=== PATIENT | female | born 1980 | race Caucasian/White ===

== ENCOUNTER 2020-02-02 15:29 | Observation (INO) | payer OTHER ==
[~2020-02-02] VITALS: Ht 167.6 cm; Wt 78.4 kg
[2020-02-02] MEDS ORDERED: IV RINGERS,LACTATED 1000ML 1,000 ML IV SCH ×2 (15:38→17:00)
[2020-02-02] MEDS ORDERED: PHENYLEPHRINE in 0.9% NACL PF 1 MG/10 ML SYRINGE. IV ONE (15:43)
[2020-02-02] MEDS ORDERED: OXYTOCIN 10 UNIT/ML VIAL. ONE (15:44)
[2020-02-02] MEDS ORDERED: GLYCOPYRROLATE 1 MG/5 ML VIAL. ONE (15:44)
[2020-02-02] MEDS ORDERED: VASOPRESSIN 20 UNIT/ML VIAL. ONE (15:44)
[2020-02-02] MEDS ORDERED: MORPHINE SULFATE 2 MG/ML VIAL. IV PRN (15:45)
[2020-02-02] MEDS ORDERED: ONDANSETRON PF 4 MG/2 ML VIAL. IV PRN ×2 (15:45→16:30)
[2020-02-02] MEDS ORDERED: HYDROmorphone 2 MG/ML VIAL IV PRN (15:45)
[2020-02-02] MEDS ORDERED: fentaNYL PF VIAL 100 MCG/2 ML VIAL IV PRN ×2 (15:45)
[2020-02-02] MEDS ORDERED: PROCHLORPERAZINE 10 MG/2 ML VIAL. IV PRN ×2 (15:45→16:30)
[2020-02-02 15:59] LABS: HEMATOCRIT 26.3 % (36.0-47.0); HEMOGLOBIN 8.7 g/dL (12.0-15.5); WHITE BLOOD COUNT 11.1 x10^3/uL (4.0-11.0)
[2020-02-02] MEDS ORDERED: fentaNYL PF VIAL 100 MCG/2 ML VIAL ONE (16:19)
[2020-02-02] MEDS ORDERED: ONDANSETRON PF 4 MG/2 ML VIAL. ONE (16:19)
[2020-02-02] MEDS ORDERED: PROPOFOL 20 ML IV ONE (16:19)
[2020-02-02] MEDS ORDERED: DEXAMETHASONE SOD PHOS 4 MG/ML VIAL ONE (16:19)
[2020-02-02] MEDS ORDERED: LIDOCAINE 2% PF 5 ML VIAL. ONE (16:19)
[2020-02-02] MEDS ORDERED: SEVOFLURANE 16 TO 30 MINUTES. IH ONE (16:20)
[2020-02-02] MEDS ORDERED: ceFAZolin SODIUM IV Push 1 GM VIAL. IVP ONE ×2 (16:22→17:00)
--- NOTE | 2020-02-02 16:27 | PDOC1 ---
History and Physical Date of Admission Date of Admission DATE: 02/02/20 TIME: 16:24 Identification/Chief Complaint Chief Complaint vaginal bleeding and abd pain Source Source: Chart review, Patient History of Present Illness History of Present Illness 39 y/o G1 @ 9 wks with incomplete transferred from [facility] [place]. SHe continues to have bright red bleeding, near syncope and dizziness. Past Surgical History Past Surgical History: No pertinent history Current Medications Current Medications Current Medications Ondansetron HCl (Zofran) 4 mg PRN Q6HRS PRN IV NAUSEA/VOMITING; Start 02/02/20 at 15:45; Stop 02/03/20 at 15:44 Fentanyl Citrate (Fentanyl 2ml Vial) 25 mcg PRN Q5MIN PRN IV MILD PAIN 1-3; Start 02/02/20 at 15:45; Stop 02/03/20 at 15:44 Fentanyl Citrate (Fentanyl 2ml Vial) 50 mcg PRN Q5MIN PRN IV MODERATE TO SEVERE PAIN; Start 02/02/20 at 15:45; Stop 02/03/20 at 15:44 Morphine Sulfate (Morphine Sulfate) 1 mg PRN Q10MIN PRN IV SEVERE PAIN 7-10; Start 02/02/20 at 15:45; Stop 02/03/20 at 15:44; Status UNV Ringer's Solution 1,000 ml @ 30 mls/hr Q24H IV ; Start 02/02/20 at 15:38; Stop 02/03/20 at 03:37 Hydromorphone HCl (Dilaudid) 0.5 mg PRN Q10MIN PRN IV SEV PAIN, Second choice; Start 02/02/20 at 15:45; Stop 02/03/20 at 15:44; Status UNV Prochlorperazine Edisylate (Compazine) 5 mg PACU PRN PRN IV NAUSEA, MRX1; Start 02/02/20 at 15:45; Stop 02/02/20 at 20:00 Allergies Allergies: Coded Allergies: erythromycin base (Verified Allergy, Unknown, 02/02/20) hydrocodone (Verified Allergy, Unknown, 02/02/20) ROS General: YES: Fatigue, Malaise; No: Chills, Night Sweats, Appetite, Other PSYCHOLOGICAL ROS: YES: Anxiety; No: Behavioral Disorder, Concentration difficultie, Decreased libido, Depression, Disorientation, Hallucinations, Hostility, Irritablity, Memory difficulties, Mood Swings, Obsessive thoughts, Physical abuse, Sexual abuse, Sleep disturbances, Suicidal ideation, Other Eyes: No Blurry vision, No Decreased vision, No Double vision, No Dry eyes, No Excessive tearing, No Eye Pain, No Itchy Eyes, No Loss of vision, No Photophobia, No Scotomata, No Uses contacts, No Uses glasses, No Other HEENT: No: Heacaches, Visual Changes, Hearing change, Nasal congestion, Nasal discharge, Oral lesions, Sinus pain, Sore Throat, Epistaxis, Sneezing, Snoring, Tinnitus, Vertigo, Vocal changes, Other ALLERGY AND IMMUNOLOGY: No: Hives, Insect Bite Sensitivity, Itchy/Watery Eyes, Nasal Congestion, Post Nasal Drip, Seasonal Allergies, Other Hematological and Lymphatic: No: Bleeding Problems, Blood Clots, Blood Transfusions, Brusing, Night Sweats, Pallor, Swollen Lymph Nodes, Other ENDOCRINE: No: Breast Changes, Galactorrhea, Hair Pattern Changes, Hot Flashes, Malaise/lethargy, Mood Swings, Palpitations, Polydipsia/polyuria, Skin Changes, Temperature Intolerance, Unexpected Weight Changes, Other Breast: No New/Changing Breast Lumps, No Nipple changes, No Nipple discharge, No Other Respiratory: No: Cough, Hemoptysis, Orthopnea, Pleuritic Pain, Shortness of breath, SOB with excertion, Sputum Changes, Stridor, Tachypnea, Wheezing, Other Cardiovascular: No Chest Pain, No Palpitations, No Orthopnea, No Paroxysmal Noc. Dyspnea, No Edema, No Lt Headedness, No Other Gastrointestinal: No Nausea, No Vomiting, No Abdominal Pain, No Diarrhea, No Constipation, No Melena, No Hematochezia, No Other Skin: No Dry Skin, No Eczema, No Hair Changes, No Lumps, No Mole Changes, No Mottling, No Nail Changes, No Pruritus, No Rash, No Skin Lesion Changes, No Other, No Acne Physical Exam General: moderate distress HEENT: PERRLA Lungs: Clear to auscultation Heart: S1S2 Abdomen: Normal bowel sounds, Soft, No masses, Other (tenderness, moderate) Psych/Mental Status: Mental status NL Vitals Vitals Vital Signs Date Time Temp Pulse Resp B/P (MAP) Pulse Ox O2 Delivery O2 Flow Rate FiO2 3/25/20 15:40 98.5 72 18 79/38 100 Room Air 98.5 Labs Labs Laboratory Tests Test 02/02/20 15:50 White Blood Count 11.1 x10^3/uL (4.0-11.0) Hemoglobin 8.7 g/dL (12.0-15.5) Hematocrit 26.3 % (36.0-47.0) Platelet Count 217 x10^3/uL (140-400) Laboratory Tests Test 02/02/20 15:50 White Blood Count 11.1 x10^3/uL (4.0-11.0) Hemoglobin 8.7 g/dL (12.0-15.5) Hematocrit 26.3 % (36.0-47.0) Platelet Count 217 x10^3/uL (140-400) VTE Prophylaxis Ordered VTE Prophylaxis Devices: No VTE Pharmacological Prophylaxi: No Assessment/Plan Assessment/Plan A: 9 wk Incomplete AB P: Plan for suction D&C. Observation 23 hours due to anemia. MAURICIO DAY Jr, MD Feb 02, 2020 16:27
[2020-02-02] MEDS ORDERED: oxyCODONE/APAP 5/325 1 TAB TABLET PO PRN (16:30)
[2020-02-02] MEDS ORDERED: 0.9 % SODIUM CHLORIDE 10 ML DISP.SYRIN. IV PRN (16:30)
[2020-02-02] MEDS ORDERED: diphenhydrAMINE HCL 25 MG CAPSULE PO PRN (16:30)
[2020-02-02] MEDS ORDERED: CALCIUM CARBONATE 500 MG TAB.CHEW PO PRN (16:30)
[2020-02-02] MEDS ORDERED: ZOLPIDEM 5 MG TABLET. PO PRN (16:30)
[2020-02-02] MEDS ORDERED: diphenhydrAMINE 50 MG/ML VIAL IV PRN (16:30)
[2020-02-02] MEDS ORDERED: KETOROLAC 30 MG/ML VIAL. IV PRN (16:30)
[2020-02-02] MEDS ORDERED: SIMETHICONE 80 MG TAB.CHEW PO PRN (16:30)
[2020-02-02] MEDS ORDERED: DEXTROSE 50% 25 GM / 50ML DISP.SYRIN. IV PRN (16:30)
--- NOTE | 2020-02-02 16:30 | PDOC ---
BRIEF OPERATIVE NOTE Date: Feb 02, 2020 Pre-Op Diagnosis 9 wks Incomplete AB Post-Op Diagnosis SAme Procedure Performed Suction D&C Surgeon Dr. Back Anesthesia Type: General Blood Loss 100 ml Specimens Obtained POC Findings POC Complications none Operative Note see dictation MAURICIO BACK Jr, MD Feb 02, 2020 16:29
[2020-02-02] MEDS: GABAPENTIN 300 MG CAPSULE. PO SCH ×2 (17:00→22:57)
--- NOTE | 2020-02-02 17:23 | OP ---
DATE OF SURGERY: PREOPERATIVE DIAGNOSIS: A 9 weeks' incomplete . POSTOPERATIVE DIAGNOSIS: A 9 weeks' incomplete . PROCEDURE: Suction D and C. SURGEON: Mauricio Back MD ANESTHESIA: GETA. ESTIMATED BLOOD LOSS: 100 mL. COMPLICATIONS: None. FINDINGS: Products of conception. SUMMARY: A 39-year-old 1 at 9 weeks, incomplete , presented to [facility] Emergency Department with active bleeding and abdominal pain. The patient was transferred to the Emergency Room here at [place]. She was counseled on risks, benefits and expectations of suction D and C for incomplete and voiced clear understanding to proceed. DESCRIPTION OF PROCEDURE: The patient was taken to surgery suite and placed in dorsal lithotomy position. She was prepped with Betadine solution and draped in a sterile fashion. After adequate anesthesia, weighted speculum and curved Anila placed vaginally. Anterior lip of the cervix grasped with single tooth tenaculum. Curved [place] was removed. A 9 mm curved tip suction curette was placed. Following removal of products of conception tissue at the cervical os, the suction curette was rotated circumferentially, removing additional products of conception and blood clot. Sharp curette took place to a fine gritty surface palpated circumferentially. Suction curette was once again passed removing additional blood products. Single tooth tenaculum was removed. Weighted speculum was removed. The patient tolerated the procedure well. The uterus was palpated firm. Sponge and needle count correct x 3. The patient was taken to recovery room in stable condition. MAURICIO BACK MD DR: YENNY/heather JOB#: [id number] / [id number]
[2020-02-02 17:30] VITALS: BP 95/41
[2020-02-02 17:35] VITALS: BP 109/54
[2020-02-02] MEDS ORDERED: CETI10TA24 PO (18:03)
[2020-02-02] MEDS ORDERED: THYR30TA PO (18:03)
[2020-02-02] MEDS ORDERED: DOCO200C4 PO (18:04)
[2020-02-02] MEDS ORDERED: MAGN100T6 PO (18:05)
[2020-02-02] MEDS ORDERED: UBID50TA PO (18:06)
[2020-02-02] MEDS ORDERED: ACET600C3 PO (18:07)
[2020-02-02] MEDS ORDERED: PSYL0.526 PO (18:09)
[2020-02-02] MEDS ORDERED: LACT1CAP29 PO (18:09)
[2020-02-02] MEDS ORDERED: MELA3TAB4 PO (18:10)
[2020-02-02] MEDS ORDERED: CHOL40003 PO (18:11)
[2020-02-02 18:20] VITALS: BP 101/34
[2020-02-02] MEDS: IV RINGERS,LACTATED 1000ML 1,000 ML IV SCH (18:25)
[2020-02-02 21:22] VITALS: BP 97/52
[2020-02-02 22:34] VITALS: BP 95/48
[2020-02-03] MEDS: IV RINGERS,LACTATED 1000ML 1,000 ML IV SCH (00:56)
[2020-02-03 01:24] VITALS: BP 103/47
[2020-02-03 05:31] LABS: BASO % 0 % (0-3); EOS % 0 % (0-3); HEMATOCRIT 24.6 % (36.0-47.0); HEMOGLOBIN 8.3 g/dL (12.0-15.5); LYMPH # 1.3 x10^3/uL (1.0-4.8); LYMPH % 15 % (24-48); MEAN CORPUSCULAR HEMOGLOBIN 30 pg (25-35); MEAN CORPUSCULAR HGB CONC 34 g/dL (31-37); MEAN CORPUSCULAR VOLUME 90 fL (79-100); MONO # 0.3 x10^3/uL (0.0-1.1); MONO % 4 % (0-9); NEUT % 81 % (31-73); PLATELET COUNT 198 x10^3/uL (140-400); RED BLOOD COUNT 2.73 x10^6/uL (3.50-5.40); RED CELL DISTRIBUTION WIDTH 13.6 % (11.5-14.5); WHITE BLOOD COUNT 8.6 x10^3/uL (4.0-11.0)
[2020-02-03 06:28] VITALS: BP 92/47
[2020-02-03] MEDS: GABAPENTIN 300 MG CAPSULE. PO SCH (06:34)
[2020-02-03 10:55] VITALS: BP 98/47
[2020-02-03] MEDS ORDERED: IBUPROFEN 400 MG TABLET. PO PRN (11:00)
--- NOTE | 2020-02-03 11:22 | PDOC ---
SURGICAL PROGRESS NOTE Subjective Pt. feeling well. Pain controlled. No bleeding. Vital Signs Vital Signs Date Time Temp Pulse Resp B/P (MAP) Pulse Ox O2 Delivery O2 Flow Rate FiO2 02/03/20 10:55 98.0 74 98/47 (64) 98 Room Air 98.0 02/03/20 06:28 18 02/02/20 16:48 10 I&O Intake and Output 02/03/20 07:00 Intake Total 1950 ml Output Total 110 ml Balance 1840 ml Intake IV Total 1950 ml Output Urine Total 10 ml Estimated Blood Loss 100 ml # Voids 7 General: Alert, Oriented X3, Cooperative HEENT: Atraumatic Lungs: Clear to auscultation Heart: Regular rate Abdomen: Normal bowel sounds, Soft, No masses, Other (mild tenderness) Psych/Mental Status: Mental status NL Labs Laboratory Tests Test 02/02/20 15:50 02/03/20 04:30 White Blood Count 11.1 x10^3/uL (4.0-11.0) 8.6 x10^3/uL (4.0-11.0) Hemoglobin 8.7 g/dL (12.0-15.5) 8.3 g/dL (12.0-15.5) Hematocrit 26.3 % (36.0-47.0) 24.6 % (36.0-47.0) Platelet Count 217 x10^3/uL (140-400) 198 x10^3/uL (140-400) Red Blood Count 2.73 x10^6/uL (3.50-5.40) Mean Corpuscular Volume 90 fL (79-100) Mean Corpuscular Hemoglobin 30 pg (25-35) Mean Corpuscular Hemoglobin Concent 34 g/dL (31-37) Red Cell Distribution Width 13.6 % (11.5-14.5) Neutrophils (%) (Auto) 81 % (31-73) Lymphocytes (%) (Auto) 15 % (24-48) Monocytes (%) (Auto) 4 % (0-9) Eosinophils (%) (Auto) 0 % (0-3) Basophils (%) (Auto) 0 % (0-3) Neutrophils # (Auto) 7.0 x10^3/uL (1.8-7.7) Lymphocytes # (Auto) 1.3 x10^3/uL (1.0-4.8) Monocytes # (Auto) 0.3 x10^3/uL (0.0-1.1) Eosinophils # (Auto) 0.0 x10^3/uL (0.0-0.7) Basophils # (Auto) 0.0 x10^3/uL (0.0-0.2) Laboratory Tests Test 02/02/20 15:50 02/03/20 04:30 White Blood Count 11.1 x10^3/uL (4.0-11.0) 8.6 x10^3/uL (4.0-11.0) Hemoglobin 8.7 g/dL (12.0-15.5) 8.3 g/dL (12.0-15.5) Hematocrit 26.3 % (36.0-47.0) 24.6 % (36.0-47.0) Platelet Count 217 x10^3/uL (140-400) 198 x10^3/uL (140-400) Red Blood Count 2.73 x10^6/uL (3.50-5.40) Mean Corpuscular Volume 90 fL (79-100) Mean Corpuscular Hemoglobin 30 pg (25-35) Mean Corpuscular Hemoglobin Concent 34 g/dL (31-37) Red Cell Distribution Width 13.6 % (11.5-14.5) Neutrophils (%) (Auto) 81 % (31-73) Lymphocytes (%) (Auto) 15 % (24-48) Monocytes (%) (Auto) 4 % (0-9) Eosinophils (%) (Auto) 0 % (0-3) Basophils (%) (Auto) 0 % (0-3) Neutrophils # (Auto) 7.0 x10^3/uL (1.8-7.7) Lymphocytes # (Auto) 1.3 x10^3/uL (1.0-4.8) Monocytes # (Auto) 0.3 x10^3/uL (0.0-1.1) Eosinophils # (Auto) 0.0 x10^3/uL (0.0-0.7) Basophils # (Auto) 0.0 x10^3/uL (0.0-0.2) Assessment/Plan A: POD# 1 s/p Suction D&C P: D/c home. MAURICIO DAY Jr, MD Feb 03, 2020 11:22
[2020-02-03] MEDS ORDERED: IBUP-1027 PO (11:23)
--- NOTE | 2020-02-03 11:23 | DISCH ---
DISCHARGE INSTRUCTIONS Condition on Discharge Condition on Discharge: Stable Activity After Discharge Activity Instructions for Disc: Activity as tolerated Lifting Instructions after Dis: No heavy lifting Driving Instructions after Dis: Do not drive today Diet after Discharge Diet after Discharge: Regular Contacting the DRAnastasia after DC Call your doctor for: Concerns you may have Follow-Up Follow up with: Dr. Back in 2 wks MAURICIO BACK Jr, MD Feb 03, 2020 11:23
--- NOTE | 2020-02-03 11:45 | NUR ---
home instructions gone overe with pt and signed no questions at this time
--- NOTE | 2020-02-04 14:06 | PATHOLOGY ---
[facility] Accession Number: [id number] . 01 Material submitted: . product of conception - PRODUCTS OF CONCEPTION . 01 Clinical history: . Incomplete . . 02 Diagnosis: Uterine contents, suction D and C: - Products of conception, comprised of few immature chorionic villi and predominant segments of decidual tissue and hypersecretory endometrium showing focal hemorrhage and acute inflammation. (JPM/db; 02/04/2020) LBQ 02/04/2020 1325 Local . 02 Electronically signed: . Deven Oreilly MD, Pathologist NPI- [id number] . 01 Gross description: . Received in formalin labeled "Young, Yuridia, products of conception" is a 24 g, 7.4 x 6.5 x 2.3 cm aggregate of hodge-brown friable soft tissue fragments. No parts are identified. Payable Processor tissue is submitted in A1-A3. ([facility]; 02/03/2020) [facility] 02/03/2020 1729 Local . 02 Pathologist provided ICD-10: N71.9, O03.4 . 02 CPT . 454705 Specimen Comment: A courtesy copy of this report has been sent to [phone] Specimen Comment: Report sent to Performed at: 01 [facility] [address], [place], [place] [id number] MD Frank Berger MD Phone: [phone] Performed at: 02 [facility] [address], [place] [id number] MD Deven Oreilly MD Phone: [phone]
== END 2020-02-03 11:59 | disposition home or self-care (01) ==
LOC: SURG 15:29 → 3 NORTH 16:30
PROVIDERS: ADMIT Obstetrics & Gynecology; ATTEND Obstetrics & Gynecology
DX: O03.4 Incomplete spontaneous abortion without complication (principal); O26.891 Other specified pregnancy related conditions, first trimester; R55 Syncope and collapse; R42 Dizziness and giddiness; Z3A.09 9 weeks gestation of pregnancy
CPT/HCPCS: 36415; 59812; 85025; 85027; 86850; 86900; 86901; 88305; 96360; 96361; A7015; G0378; G0379; J0690; J1100; J2370; J2405; J2704; J3010; J3490; J7120; J2590